=== PATIENT | male | born 1995 | race Caucasian/White ===

== ENCOUNTER 2020-12-25 12:57 | Inpatient (IN) | payer BC ==
[~2020-12-25] VITALS: Ht 190.5 cm; Wt 108.1 kg
[2020-12-25 13:05] VITALS: BP 148/62
[2020-12-25 13:42] VITALS: BP 148/62
[2020-12-25 13:58] LABS: BASO % 0.4 % (0.0-1.0); EOS # 0.2 10*3/uL (0.0-0.4); EOS % 2.7 % (1.0-4.0); HEMATOCRIT 44.7 % (42.0-52.0); LYMPH # 1.8 10*3/uL (1.3-4.4); LYMPH % 27.1 % (27.0-41.0); MEAN CELL VOLUME 87.3 fl (80.0-94.0); MEAN CORPUSCULAR HGB 30.5 pg (27.0-31.0); MEAN CORPUSCULAR HGB CONC 34.9 g/dl (33.0-37.0); MEAN PLATELET VOLUME 10.5 fl (9.6-12.3); MONO # 0.5 10*3/uL (0.1-1.0); MONO % 7.9 % (3.0-9.0); NEUT # 4.1 10*3/uL (2.3-7.9); NEUT % 61.8 % (47.0-73.0); PLATELET COUNT AUTOMATED 182 10*3/uL (130-400); RED BLOOD COUNT 5.12 10*6/uL (4.50-5.90); RED CELL DISTRI WIDTH 11.9 % (0-14.5); WHITE BLOOD COUNT 6.7 10*3/uL (4.8-10.8)
[2020-12-25 14:14] LABS: ALBUMIN 4.2 gm/dl (3.1-4.5); ALKALINE PHOSPHATASE 73 U/L (45-117); BUN 15 mg/dl (7-24); CHLORIDE 105 mmol/L (98-107); CREATININE 0.98 mg/dL (0.70-1.30); POTASSIUM 4.1 mmol/L (3.5-5.1); SGOT/AST 37 IU/L (3-35); SGPT/ALT 63 U/L (12-78); SODIUM 138 mmol/L (136-145); TOTAL PROTEIN 8.3 gm/dL (6.4-8.2)
[2020-12-25 14:18] LABS: ETHYL ALCOHOL < 3.0 mg/dl (<3)
[2020-12-25] MEDS ORDERED: HYDROXYZINE HCL25 MG PO (14:54)
[2020-12-25 15:45] LABS: BILIRUBIN Negative (Negative); BLOOD Negative (Negative); CLARITY Clear (Clear); COLOR Yellow (Yellow); GLUCOSE Negative (Negative); KETONE Negative (Negative); LEUKO ESTERASE Negative (Negative); NITRITE Negative (Negative); PH 7.5 (4.5-8.0); SPECIFIC GRAVITY 1.015 (1.001-1.030); UROBILINOGEN 0.2 E.U./dl (0.0-1.0)
[2020-12-25 15:53] LABS: URINE AMPHETAMINES < 1000 (1000ng/ml); URINE BARBITURATES < 200 (200ng/ml); URINE BENZODIAZEPINES < 200 (200ng/ml); URINE CANNABINOIDS (THC) < 50 (50ng/ml); URINE COCAINE < 300 (300ng/ml); URINE METHADONE < 300 (300ng/ml); URINE OPIATES < 300 (300ng/ml)
[2020-12-25 15:56] LABS: URINE PHENCYCLIDINE < 25 (25ng/ml)
[2020-12-25 16:00] VITALS: BP 130/70
[2020-12-25 16:01] LABS: WBC 0-2 wbc/hpf (0-5)
[2020-12-25 20:00] VITALS: BP 119/66
[2020-12-26] VITALS: BP 119/57
[2020-12-26 04:20] VITALS: BP 117/72
[2020-12-26 08:00] VITALS: BP 110/62
[2020-12-26 12:00] VITALS: BP 118/63
[2020-12-26 16:00] VITALS: BP 114/64
[2020-12-26 20:00] VITALS: BP 110/62
[2020-12-27] VITALS: BP 116/78
[2020-12-27 08:00] VITALS: BP 116/65
[2020-12-27 12:00] VITALS: BP 134/70
[2020-12-27 16:00] VITALS: BP 131/67
[2020-12-27 20:00] VITALS: BP 130/77
[2020-12-28 08:00] VITALS: BP 117/66
== END 2020-12-28 12:06 | disposition home or self-care (01) | DRG 897 ==
LOC: 5E 12:57
PROVIDERS: Registered Nurse; ADMIT Family Medicine; ATTEND Family Medicine
DX: F10.239 Alcohol dependence with withdrawal, unspecified (principal); F41.9 Anxiety disorder, unspecified; R74.01 Elevation of levels of liver transaminase levels; E66.3 Overweight; Z88.0 Allergy status to penicillin; Z68.29 Body mass index [BMI] 29.0-29.9, adult